=== PATIENT | female | born 1970 | race Caucasian/White ===

== ENCOUNTER 2017-01-11 11:07 | Emergency (ER) | payer OTHER ==
[~2017-01-11] VITALS: Ht 157.5 cm; Wt 72.7 kg
[~2017-01-11 11:07] MED LIST: NOCURR
[2017-01-11] MEDS ORDERED: IBUPROFEN 800 MG TABLET PO ONE (11:45)
[2017-01-11 14:12] LABS: APPEARANCE,URINE CLOUDY (CLEAR); GLUCOSE, URINE (UA) NEGATIVE (NEGATIVE); KETONES,URINE NEGATIVE (NEGATIVE); LEUKOCYTE ESTERASE ,URINE MODERATE (NEGATIVE); OCCULT BLOOD,URINE LARGE (NEGATIVE); PROTEIN,URINE POS 1+ (NEGATIVE)
[2017-01-11 14:16] LABS: ADD UA MICROSCOPIC YES
[2017-01-11 14:19] LABS: SQUAMOUS EPITHELIAL CELL,UR Few /LPF (None Seen); WBC,URINE 26-50 /HPF (0-5)
[2017-01-11] MEDS ORDERED: LIDOCAINE HCL/PF 1% 2 ML VIAL IM ONE (14:30)
[2017-01-11] MEDS ORDERED: CefTRIAXone SODIUM 1 GM/VIAL IM ONE (14:30)
[2017-01-11 15:06] VITALS: BP 125/76
== END 2017-01-11 15:12 | disposition home or self-care (01) ==
LOC: EMS 11:08
DX: N39.0 Urinary tract infection, site not specified (principal); J06.9 Acute upper respiratory infection, unspecified
CPT/HCPCS: 71020; 81001; 87077; 87086; 87186; 87430; 96372; 99285; J0696; J3490